=== PATIENT | male | born 1995 ===

== ENCOUNTER 2017-10-05 18:00 | Emergency (ER) | payer OTHER ==
[2017-10-05 18:01] VITALS: BP 160/70; PULSE 65; RESP 20; TEMP 97.7; O2SAT 96
[2017-10-05] MEDS ORDERED: TETANUS/DIPHTHERIA TOXOID ADULT 0.5 ML VIAL IM ONE (19:45)
--- NOTE | 2017-10-05 19:49 | PD ---
HPI Chief Complaint: Laceration/Skin Injury Time Seen by Provider: 19:44 Travel History International Travel<30 days: No Contact w/Intl Traveler<30days: No Traveled to known affect area: No History of Present Illness HPI [id number] male presents for evaluation of a laceration to the right hand. It was sustained prior to arrival on the lid of a can at work. He has pain at the site of the laceration, worse with palpation. Denies numbness tingling or range of motion limitation. Last tetanus vaccination unknown. No other complaints. [facility] Social History Alcohol Use: No Tobacco Use: No Allergies-Medications (Allergen,Severity, Reaction): Coded Allergies: No Known Allergies (Unverified , 10/05/17) Reported Meds & Prescriptions Reported Meds & Active Scripts Active No Active Prescriptions or Reported Medications Review of Systems General / Constitutional: No: Fever, Chills Musculoskeletal: Positive: Pain Skin: Positive Other (positive for laceration) Neurologic: No: Paresthesia Physical Exam Narrative GENERAL: Well-nourished male in no acute distress SKIN: Warm and dry. 2 cm laceration palmar aspect of right hand proximal to the second finger. Extremities: Skin as noted above. No tendon visibility. No pulsating blood. Full range of motion right hand. Distal sensation, capillary refill normal. Data Data Last Documented VS Vital Signs Date Time Temp Pulse Resp B/P (MAP) Pulse Ox O2 Delivery O2 Flow Rate FiO2 10/05/17 18:01 97.7 65 20 160/70 (100) 96 Orders Orders Tetanus/Diphtheria Tox Adult (Tetanus/Di (10/05/17 19:45) Splint Or Brace Apply/Monitor (10/05/17 20:04) Ed Discharge Order (10/05/17 20:04) MDM Medical Decision Making Medical Screen Exam Complete: Yes Emergency Medical Condition: Yes Medical Record Reviewed: Yes Differential Diagnosis Cutaneous laceration, open fracture, flexor tendon injury Narrative Course Tetanus status updated. The laceration will be repaired with sutures, he verbally consents. Procedures Procedure Narrative LACERATION LOCATION: Right hand LENGTH: 2 cm NUMBER OF STITCHES/JASON: 7 REPAIR: The area of the laceration was prepped with Betadine and sterilely draped. The laceration was infiltrated with 1% lidocaine. The wound was copiously irrigated and explored without evidence of foreign body, tendon injury or neurovascular injury. The wound was closed using 5-0 Prolene simple interrupted this was a single layer repair. A sterile dressing was applied. The patient was advised to keep the dressing clean and dry. Patient tolerated the procedure well. Diagnosis Primary Impression: Laceration of right hand Additional Instructions: Wash daily with soap and water and apply antibiotic cream daily. Minimize use of right index finger to prevent wound dehiscence. Return in 10-14 days for suture removal. Med/Other Pt SpecificInfo: Wound Care Scripts No Active Prescriptions or Reported Meds Disposition: 01 DISCHARGE HOME Condition: Stable Deepak Abreu Oct 05, 2017 19:49
== END 2017-10-05 20:32 | disposition home or self-care (01) ==
LOC: NEPK 18:00
DX: S61.411A Laceration without foreign body of right hand, initial encounter (principal); W26.8XXA Contact with other sharp object(s), not elsewhere classified, initial encounter; Y99.0 Civilian activity done for income or pay; Z23 Encounter for immunization
CPT/HCPCS: 12001; 29130; 90471; 90714